=== PATIENT | male | born 1960 | race Caucasian/White ===

== ENCOUNTER 2018-04-01 14:25 | Emergency (ER) | payer OTHER | END 2018-04-01 15:52 | disposition home or self-care (01) | LOC: M ED 14:25 | DX: Z04.1 Encounter for examination and observation following transport accident (principal); S23.3XXA Sprain of ligaments of thoracic spine, initial encounter; V99.XXXA Unspecified transport accident, initial encounter; Y92.410 Unspecified street and highway as the place of occurrence of the external cause | CPT/HCPCS: 99284 ==